=== PATIENT | female | born 1970 | race Caucasian/White ===

== ENCOUNTER → 2021-08-06 | Outpatient (CLI) | payer OTHER ==
[~2021-08-06] MED LIST: BUPR150T21 PO; ESTR10TA VG; IOHEXOL 180 MG/ML 10 ML VIAL. ONE; LACT1CAP37 PO; MAGN400T48 PO; MELO7.5T29 PO; METO25TA4 PO; OMEG100021 PO; PRAV80TA2 PO; PREG200C PO; SEMA0.5P SQ; SUMA100T4 PO; TIZA-75 PO; TOPI100T8 PO; TRAZ-123 PO; VENL150C3 PO; methylPREDNISolone ACETATE 40 MG/ML VIAL. ONE; methylPREDNISolone ACETATE 80 MG/ML VIAL. ONE
--- NOTE | 2021-08-06 12:56 | PDOC1 ---
INITIAL PAIN CONSULT DATE OF SERVICE: DOS: DATE: 08/06/21 TIME: 12:49 CHIEF COMPLAINT: Chief Complaint: Neck and right upper extremity pain HISTORY OF PRESENT ILLNESS: 51-year-old female presents with history of pain in the base the neck and right upper extremity for about 1 year at its current level many years with pain but much more significant with the past 1 year. Patient reports is radiating from the base the neck into the shoulder posteriorly on the right side right upper extremity into the lateral aspect the shoulder bicep tricep also in the forearm into the hand with numbness and tingling the first and second fingers patient reports worse with activity reaching overhead with the right arm repetitive motions lifting weights with the right arm doing activity with twisting such as the lid of a jar the right hand patient reports no motor loss but significant fatigability of the right upper extremity with activities patient reports that sharp and throbbing and shooting in the right upper extremities all tingling with radiating pain burning and cramping at times as well it does awaken her from sleep least once or twice a night does not affect her bowel bladder control and does not affect her ability to walk. Patient reports she is undergoing chiropractic treatment and has been for many months which helps but only temporarily patient reports been taking [id number] Tylenol as well as Advil which helps temporarily as well. Patient rates her disability rating 0-10 10 being the worst as a 4 with family home was possibilities recreation and occupational activities 3 with social activity sexual behavior self-care and life support activities. Patient had an MRI scan of the cervical spine showing C6-7 level mild broad posterior annular disc bulging with asymmetric right foraminal disc osteophyte complex and marked right neuroforaminal narrowing. C5-6 level shows mild left and mild to moderate right neuroforaminal narrowing as well. PAST MEDICAL HISTORY: PMH: Hypertension, irritable bowel syndrome, hyperlipidemia PREVIOUS SURGERIES: Past Surgical Hx: None CURRENT MEDICATIONS: Current Meds: See chart FAMILY HISTORY: Family Hx: No major medical problems or conditions that she is aware of. SOCIAL HISTORY: Social Hx: Patient is dark alcohol does not smoke says any illegal licit recreational drugs is single lives locally in [facility] REVIEW OF SYSTEMS: ROS: Positive for those items mentioned in history of present illness, all systems are reviewed, otherwise negative ,and are complete full and well-documented on patient's chart. PHYSICAL EXAM: VS: Blood pressure is 111/83 pulse 77 respirations 18 temperature is 97.4 F height is 5 foot 1 inch weight is 196 pounds. PE: PHYSICAL EXAMINATION: GENERAL: The patient is awake, alert, oriented, appropriate, very pleasant in demeanor HEENT: Shows normocephalic, atraumatic. Extraocular movements are intact and symmetrical. Oral cavity: Mucous membranes moist and pink. Dentition is intact. NECK: Shows anterior throat supple without palpable lymphadenopathy noted. Swallow reflex symmetrical. CHEST: Shows normal on inspection. Breath sounds are clear bilaterally, no rales rhonchi or wheezes auscultated. HEART: Shows S1, S2 clear. No murmurs auscultated. ABDOMEN: Soft, nontender, nondistended. No palpable organomegaly is noted. BACK: Shows spine grossly in the midline. Normal-appearing cervical lordotic curvature. Cervical paraspinous muscles show symmetrical with inspection, palpation some moderate tenderness diffusely bilaterally diffusely without significant radiation. Patient shows good rotation of motion cervical spine with lateral as well as full extension full forward flexion without significant difficulty or pain reported. There is slightly increased thoracic kyphosis, some minor flattening of the lumbar lordotic curvature. EXTREMITIES: Upper extremities show deep tendon reflexes 2+ in the biceps and triceps tendons. 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 Peripheral pulses are 2+ radial. No peripheral edema is noted bilaterally. Upper extremities are warm and dry to touch, equal in color and appearance. Shoulder shrug strong intact without loss strength on resistance bilaterally as is abduction of the shoulders at 90 degrees bilaterally. SKIN: Shows warm and dry, good turgor. No edema. No sores, rashes or bruising throughout. IMPRESSION: Impression: 51-year-old female with approximate 1 year history increasing pain base of neck right upper extremity in a radicular fashion. MRI scan cervical spine as noted. Hypertension Irritable bowel disease Depression Plan: Options were discussed with the patient could exert medical management physical therapies interventional techniques. Patient would like to pursue interventional techniques we discussed a cervical epidural steroid injections description as well as anatomical models to describe the procedure. Risks were discussed including but not limited to: Bleeding, infection, possibility of epidural hematoma and subsequent neurological compromise, dural puncture, headaches, spinal cord and/or nerve damage, side effects of steroid medication, and poor results regarding pain control. Patient understands and wished to proceed. Patient will return to the clinic in approximate 2 weeks for follow- up, was counseled as return appointment, activity level, and side effect to be aware of. Procedure cervical epidural steroid injection at the C6-7 level, using local anesthetic under sterile prep and drape using C-arm fluoroscopic guidance under local anesthesia medications injected ; 120 mg methylprednisolone +5 mL normal saline and 2 mL contrast; condition at discharge is stable patient tolerated procedure well. and had no complications RODRÍGUEZ LANE MD Aug 06, 2021 12:56
--- NOTE | 2021-08-06 12:57 | PDOC4 ---
Procedure Note: ICD 10 Code: ICD 10 Code: M54.12 MFive 0.30 M4 8.02 Procedure Note: Patient was consented for cervical epidural steroid injection with fluoroscopic guidance. Risks were discussed including but not limited to: Bleeding, infection, possibility of epidural hematoma and subsequent neurological compromise, dural puncture, headaches, spinal cord and/or nerve damage, side effects of steroid medication, and poor results regarding pain control. Patient understands and wished to proceed. Procedure cervical epidural steroid injection at the C6-7 level, using local anesthetic under sterile prep and drape using C-arm fluoroscopic guidance under local anesthesia medications injected ; 120 mg methylprednisolone +5 mL normal saline and 2 mL contrast; condition at discharge is stable patient tolerated procedure well. and had no complications RODRÍGUEZ LANE MD Aug 06, 2021 12:57
== END | disposition home or self-care (01) ==
LOC: PNCL 10:16
PROVIDERS: ATTEND Anesthesiology
DX: M50.10 Cervical disc disorder with radiculopathy, unspecified cervical region (principal); M54.12 Radiculopathy, cervical region; M48.02 Spinal stenosis, cervical region; I10 Essential (primary) hypertension; E78.5 Hyperlipidemia, unspecified; Z79.899 Other long term (current) drug therapy
CPT/HCPCS: 62321; J1030; J1040; Q9965